=== PATIENT | male | born 1970 | race Caucasian/White ===

== ENCOUNTER 2017-06-27 19:59 | Emergency (ER) | payer OTHER ==
[~2017-06-27] VITALS: Ht 170.2 cm; Wt 68.0 kg
[2017-06-27 20:00] VITALS: BP 144/77
--- NOTE | 2017-06-27 20:00 | NUR ---
pt bibra for minor TA w/ low bg today. low bg 37 in field, refusing IVHL, given oral glucagon, pt report eating three granola bars after TA. AOx4, afebrile w/ resp even & unlabored, denies any head trauma, no brennan, no dizziness, no blurred vision w/ no acute distress noted. pt refusing any other treatments at this time. Agrees to accucheck. Dr. Godoy at bedside for further eval.
--- NOTE | 2017-06-27 20:12 | NUR ---
Patient ambulatory w/ steady gait, resp even & unlabored w/ nad noted. Patient discharged to home in stable condition. Written and verbal after care instructions given. Patient verbalizes understanding of instruction.
== END 2017-06-27 20:18 | disposition home or self-care (01) ==
LOC: ER 20:00
DX: E11.649 Type 2 diabetes mellitus with hypoglycemia without coma (principal); S80.211A Abrasion, right knee, initial encounter; V43.52XA Car driver injured in collision with other type car in traffic accident, initial encounter; Y93.89 Activity, other specified; Y92.89 Other specified places as the place of occurrence of the external cause; Y99.8 Other external cause status
CPT/HCPCS: 82962; 99283; A4606; Z7610